=== PATIENT | female | born 1980 | race Caucasian/White ===

== ENCOUNTER 2018-12-13 23:18 | Emergency (ER) | payer OTHER ==
[2018-12-13 23:43] VITALS: BP 112/84; PULSE 87; O2SAT 97
[2018-12-13] MEDS ORDERED: MOTRIN 600 MG PO ONE (23:56)
[2018-12-13] MEDS ORDERED: MOTRIN 600 MG ONE (23:58)
--- NOTE | 2018-12-14 00:02 | ERPHSYRPT ---
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 As she pulled it out, she felt pain shoot through her right hand and up into her elbow. Also states her hand started to swell immediately. Pt states the swelling has gone down significantly since arriving at the hospital. The director of safety and security wanted her to have it looked at. Triage Nursing Assessment: Pt ambulated back to the ER dept while holding a large bag of ice on her right hand. Respirations easy and unlabored. Right hand slightly swollen at this time. Right hand tender to the touch. No decrease in sensation. Able to make a fist with thumb and first 2 fingers, but unable to close ring finger and pinky finger Physician History: 38-year-old white female arrives with complaint of pain in her right hand since 40 minutes. According to patient she was at her work in a coal mine she was pulling a plastic bag out of the trash container when she felt a sudden pain in her right hand which shot up into her right elbow she states she initially had swelling in her right hand located over the right fifth metacarpal on the volar surface. She states she cannot make a tight fist at this time. She is able however to wiggle her fingers and she is able to fully flex her fingers and extend her fingers. She denies any sensory loss. Past medical history includes asthma, myocardial infarction, ulcers,, anxiety, depression, gastroschesis. Past surgical history includes hernia repair, tonsillectomy and adenoidectomy, hysterectomy, , myringotomy tubes, complications from which required surgery. Social history positive tobacco use denies alcohol or illicit drug use. Occurred: just prior to arrival (40 minutes prior to arrival) Method of Injury: other (pulling plastic bag out of a trash can) Quality: constant, aching, sharpness Severity of Pain-Max: moderate Severity of Pain-Current: mild Extremities Pain Location: hand: left Modifying Factors: Improves With: movement Associated Symptoms: none Allergies/Adverse Reactions: No Known Drug Allergies Allergy (Unverified 12/13/18 23:43) Home Medications: Aspirin EC 81 mg [Ecotrin 81 mg] 1 tab PO DAILY 12/13/18 [History] Escitalopram Oxalate 10 mg [Lexapro 10 MG] 20 mg PO DAILY 12/13/18 [History] Furosemide 40 mg [Lasix 40 MG] 20 mg PO DAILY 12/13/18 [History] Potassium Chloride 10 meq PO DAILY 12/13/18 [History] Simvastatin 20 mg PO DAILY 12/13/18 [History] Hx Tetanus, Diphtheria Vaccination/Date Given: (unknown) - Review of Systems Constitutional: No Fever, No Chills Eyes: No Symptoms Ears, Nose, & Throat: No Symptoms Respiratory: No Cough, No Dyspnea Cardiac: No Chest Pain, No Edema, No Syncope Abdominal/Gastrointestinal: No Abdominal Pain, No Nausea, No Vomiting, No Diarrhea Genitourinary Symptoms: No Dysuria Musculoskeletal: Other (right hand pain) Skin: No Rash Neurological: No Dizziness, No Focal Weakness, No Sensory Changes Psychological: No Symptoms Endocrine: No Symptoms All Other Systems: Reviewed and Negative - Past Medical History Pertinent Past Medical History: Yes Neurological History: No Pertinent History ENT History: Other Cardiac History: Myocardial Infarction ([place]) Respiratory History: Asthma Endocrine Medical History: No Pertinent History Musculoskeletal History: No Pertinent History GI Medical History: Ulcer, Other History: No Pertinent History Psycho-Social History: Anxiety, Depression Female Reproductive Disorders: Other Other Medical History: gastroschesis, hernia repair, torn uterus, uterine cancer cells - Past Surgical History Past Surgical History: Yes Neuro Surgical History: No Pertinent History Cardiac: No Pertinent History, Vascular Surgery Respiratory: No Pertinent History Gastrointestinal: Hernia Repair Genitourinary: No Pertinent History Musculoskeletal: No Pertinent History Female Surgical History: Hysterectomy, Section Other Surgical History: tubes in ears, complications from and hysterectomy that had to be surgically repaired, vein stripping - Social History Smoking Status: Current every day smoker Exposure to second hand smoke: Yes Drug Use: none Patient Lives Alone: No - Female History Hx Now: No - Nursing Vital Signs Nursing Vital Signs: Initial Vital Signs Temperature 98.8 F 12/13/18 23:25 Pulse Rate 87 12/13/18 23:25 Respiratory Rate 18 12/13/18 23:25 Blood Pressure 112/84 12/13/18 23:25 O2 Sat by Pulse Oximetry 97 12/13/18 23:25 Pain Scale Pain Intensity 4 - Physical Exam General Appearance: mild distress, alert Eyes, Ears, Nose, Throat Exam: moist mucous membranes Neck Exam: non-tender, supple Cardiovascular/Respiratory Exam: chest non-tender, normal breath sounds, regular rate/rhythm, no respiratory distress Abdominal Exam: non-tender, No guarding Back Exam: normal inspection, No vertebral tenderness Shoulder Exam: normal inspection, non-tender, no evidence of injury, normal ROM Elbow/Forearm Exam: normal inspection, non-tender, no evidence of injury, normal ROM Wrist Exam: normal inspection, non-tender, no evidence of injury, normal ROM Hand Exam: No normal inspection (Right hand tender with palpation and movement overlying right fifth metacarpal volar surface full range of motion right fingers states she cannot make a tight fist with the right hand right radial and Ulnar pulses intact two over four good capillary refill all fingers sensation intact to all fingers.) DTR - Upper Extremity Exam: tricep (R): 2+, tricep (L): 2+ Neuro/Tendon Exam: normal sensation, normal motor functions Mental Status Exam: alert, oriented x 3, cooperative Skin Exam: normal color, warm, dry SpO2 Interpretation: normal (97%) SpO2: 97 - Course Nursing assessment & vital signs reviewed: Yes - Radiology Exams Right Hand X-ray Interpretation: Interpreted by me (x-ray right hand: Impression: No fractures no subluxation) Ordered Tests: Active Orders 24 hr Category Date Time Status Joao Bandage Application [facility] STAT Care 12/14/18 00:20 Active HAND (MINIMUM 3 VIEWS) Stat Exams 12/14/18 00:01 Taken Medication Summary Discontinued Medications Generic Name Dose Route Start Last Admin Trade Name Nate PRN Reason Stop Dose Admin Ibuprofen 600 mg 12/13/18 23:56 12/14/18 00:00 Motrin 600 Mg PO 12/13/18 23:57 600 mg STAT ONE Administration Ibuprofen Confirm 12/13/18 23:58 Motrin 600 Mg Administered 12/13/18 23:59 Dose 600 mg .ROUTE .STK-MED ONE - Progress Progress: improved Progress Note: 12/14/18 00:25 This is a 38-year-old white female who arrives with complaint of pain in her right hand after pulling a plastic bag out of the trash can at work. She states she had pain in her right hand located over the right fifth metacarpal which showed a shot pain up to right elbow. On arrival patient is able to fully flex and extend all of her right finger sensation is intact to all right fingers there is good capillary refill to all right fingers. She is tender with palpation overlying the right fifth metacarpal volar surface. Right radial and Ulnar pulses are intact two over four there is full range of motion to the right wrist elbow and shoulder. X-ray of the right hand (my read) no fractures no subluxation. Will go ahead and have nurse apply Joao wrap to the right hand patient was given Advil for pain. She is recommended to take Tylenol every 4 hours or Advil every 6 hours as needed for pain cold packs to the right hand 24-48 hours. She is to have limited use of the right hand 48-72 hours. She is to followup with her company physician if symptoms are worse, no better in 24-48 hours, or persist longer than one week. She is return for acute distress or for severe symptoms. - Departure Departure Disposition: Home Clinical Impression: Right hand pain Sprain of right hand Qualifiers: Encounter type: initial encounter Qualified Code(s): S63.91XA - Sprain of unspecified part of right wrist and hand, initial encounter Condition: Fair Critical Care Time: No Referrals: DANELLE WARNER [Primary Care Provider] - Additional Instructions: Return to work. Limited use of right hand 48-72 hours. Tylenol every 4 hours or Motrin every 6 hours as needed for pain. Cold packs right hand 24-48 hours. Followup with your company physician if symptoms are worse, no better in 48 hours, or persist longer than one week. Return for acute distress or for severe symptoms. Your x-rays have been preliminarily read they will be reread tomorrow you'll be contacted if any discrepancies are noted.
--- NOTE | 2018-12-14 08:42 | XRAY ---
Indication: Pain following injury. Comparison: None 3 views of the right hand demonstrates tiny bone islands of the distal radius and head of the 4th proximal phalanx. Also mild lunate triquetrum degenerative changes. No other bony, articular, or soft tissue abnormalities.
== END 2018-12-14 00:44 | disposition home or self-care (01) ==
LOC: ED 23:18
DX: M79.641 Pain in right hand (principal); S63.91XA Sprain of unspecified part of right wrist and hand, initial encounter; X50.0XXA Overexertion from strenuous movement or load, initial encounter; X50.9XXA Other and unspecified overexertion or strenuous movements or postures, initial encounter; Y93.89 Activity, other specified; Y92.64 Mine or pit as the place of occurrence of the external cause; Y99.0 Civilian activity done for income or pay
CPT/HCPCS: 73130; 99283; A9270-GY

== ENCOUNTER 2023-10-20 21:37 | Observation (INO) | payer MEDICARE ==
[2023-10-20] MEDS ORDERED: DUONEB 0.5-3 MG/3 ml Neb IH ONE ×2 (21:44→22:18)
[2023-10-20] MEDS: DUONEB 0.5-3 MG/3 ml Neb IH ONE ×2 (21:48→22:46)
[2023-10-20] MEDS ORDERED: solu-MEDROL ONE (22:13)
[2023-10-20] MEDS ORDERED: Sterile H2O 10 ml IJ ONE (22:13)
[2023-10-20] MEDS: solu-MEDROL 125 MG, Sterile H2O 10 ml 2 ML IV ONE (22:15)
[2023-10-20 22:27] LABS: Absolute Neutrophil Ct (ANC) 5.24 x10^3/uL (1.4-6.9); Basophil (Absolute #) 0.09 x10^3/uL (0-0.4); Eosinophil % 2.5 % (0.00-5.0); Eosinophil (Absolute #) 0.24 x10^3/uL (0-0.5); Hematocrit 42.5 % (35-47); Hemoglobin 14.2 g/dL (12.0-16.0); IMMATURE GRAN # 0.02 x10^3u/L (0.00-0.03); IMMATURE GRAN % 0.2 % (0.00-0.4); Lymphocyte (Absolute #) 3.32 x10^3/uL (1.0-4.6); Lymphocytes % 35.2 % (24.0-44.0); Mean Corpuscular Hemoglobin 28.7 pg (26-32); Mean Corpuscular Hgb Concent. 33.4 g/dL (32-36); Monocyte (Absolute #) 0.52 x10^3/uL (0.0-1.3); Monocytes % 5.5 % (0.0-12.0); Neutrophil % 55.6 % (36.0-66.0); Platelet Count 232 x10^3/uL (150-450); Red Blood Count 4.94 x10^6/uL (4.1-5.4); Red Cell Distribution Width 12.8 % (11.5-14.0); White Blood Count 9.4 x10^3/uL (4.0-10.5)
[2023-10-20 22:41] LABS: ALBUMIN 4.1 g/dL (3.5-5.0); ANION GAP 10.6 MEQ/L (5-15); BILIRUBIN,TOTAL 0.2 mg/dL (0.2-1.3); Creatinine 1 0.68 mg/dL (0.52-1.04); EST GLOMERULAR FILTRATION RATE 109.4 ML/MIN; Potassium 3.8 mmol/L (3.5-5.1); Total Protein 6.9 g/dL (6.3-8.2)
[2023-10-21] MEDS ORDERED: Zithromax 500 MG/ 250 ML NaCl Premix 500 MG/250 ML IVPB IV ONE (00:16)
[2023-10-21] MEDS ORDERED: ROCEPHIN 2 GM/100 ML NACL 2 GM/100 ML IVPB IV ONE (00:17)
[2023-10-21] MEDS: Zithromax 500 MG/ 250 ML NaCl Premix 500 MG/250 ML IVPB IV STA (00:27)
--- NOTE | 2023-10-21 00:29 | ERPHSYRPT ---
- History of Present Illness Time Seen by Provider: 10/20/23 21:41 Source: patient, family Exam Limitations: no limitations Patient Subjective Stated Complaint: pt states that at approx 1930 she had just picked child up she started feeling "weird" and described it as being shortness of breath and feeling like she is being "sqeezed" around her upper chest and back circumferentially. states it isn't pain but a sqeezing/ pressure rated 8/10 and has been constant since 193. Triage Nursing Assessment: pt ambulated into room 6 independently with slow steady gait after standing on scale for weight acquisition. pt is alert and oriented times three, able to move all extremities, speaking in 2-3 word phrases, and with labored breathing using accessory muscles- with an increased work of breathing. bilat anterior lung sounds with inspiratory/ expiratory wheezes throughout. pt denies h/o of copd, cpap usage, or home oxygen use. heart sounds present and regular upon auscultation. no JVD noted. moderate nonpitting edema noted to bilat ankles and feet which pt states is her baseline. bilat radial and pedal pulses palpable. pt denies n/v, diarrhea, lightheadedness, dizziness, change in appetite, difficulty with urinary/ bowel elimination, fever , cough, chills, contact with sick persons or other complaints than feeling "weird" and described it as being shortness of breath and feeling like she is being "sqeezed" around her upper chest and back circumferentially. states it isn't pain but a sqeezing/ pressure rated 8/10 and has been constant Physician History: 43-year-old female with history of tobacco abuse presented in the ER with sudden onset shortness of breath with chest tightness pressure with some radiation to the back around 7:30 PM. Patient reports feels weird and short of breath even resting and gets worse with minimal activity. Denies any fever or chills. Has minimal nonproductive cough. Denies any known sick contact. Patient has no history of coronary artery disease. Patient is tachypneic on presentation with bilateral diffuse wheezing. Allergies/Adverse Reactions: No Known Drug Allergies Allergy (Verified 10/20/23 21:41) Home Medications: Aspirin EC 81 mg [Ecotrin 81 mg] 1 tab PO DAILY 12/13/18 [History] Escitalopram Oxalate [Lexapro] 20 mg PO HS 12/13/18 [History] Furosemide 40 mg [Lasix 40 MG] 20 mg PO DAILY 12/13/18 [History] Potassium Chloride 10 meq PO DAILY 12/13/18 [History] Albuterol 2.5 mg/3 ml Neb [Proventil 2.5 mg/3 ml Neb] 2.5 mg IH UD PRN 10/20/23 [History] Albuterol Sulfate [Proair Respiclick] 2 puffs IH Q4-6HPRN PRN 10/20/23 [History] Atorvastatin Calcium [Lipitor 20MG Tablet] 20 mg PO HS 10/20/23 [History] Fluticasone/Umeclidin/Vilanter [Trelegy Ellipta 100-62.5-25] 1 each IH UD 10/20/23 [History] Omeprazole 20 mg PO HS 10/20/23 [History] Rivaroxaban 10 mg Tablet [Xarelto 10 mg Tablet] 10 mg PO HS 10/20/23 [History] Hx Tetanus, Diphtheria Vaccination/Date Given: Yes Hx Influenza Vaccination/Date Given: No Hx Pneumococcal Vaccination/Date Given: No Immunizations Up to Date: Yes Travel Risk - International Travel Have you traveled outside of the country in past 3 weeks: No - Emerging Infectious Disease Are you exhibiting symptoms associated with any current EIDs: No - Review of Systems Constitutional: No Symptoms Eyes: No Symptoms Ears, Nose, & Throat: No Symptoms Respiratory: Cough, Dyspnea, Dyspnea on Exertion (GUZMAN), Wheezing Cardiac: Chest Pain Abdominal/Gastrointestinal: No Symptoms Genitourinary Symptoms: No Symptoms Musculoskeletal: No Symptoms Skin: No Symptoms Neurological: No Symptoms Psychological: No Symptoms Endocrine: No Symptoms Hematologic/Lymphatic: No Symptoms Immunological/Allergic: No Symptoms - Past Medical History Pertinent Past Medical History: Yes Neurological History: No Pertinent History ENT History: No Pertinent History Cardiac History: Coronary Artery Disease, High Cholesterol, Hypertension, Myocardial Infarction ([place]) Respiratory History: Asthma Endocrine Medical History: No Pertinent History Musculoskeletal History: No Pertinent History GI Medical History: Ulcer, Other History: No Pertinent History Psycho-Social History: Anxiety, Depression Female Reproductive Disorders: Other Other Medical History: gastroschesis, hernia repair, torn uterus, uterine cancer cells - Past Surgical History Past Surgical History: Yes Neuro Surgical History: No Pertinent History Cardiac: No Pertinent History, Vascular Surgery Respiratory: No Pertinent History Gastrointestinal: Hernia Repair Genitourinary: No Pertinent History Musculoskeletal: No Pertinent History Female Surgical History: Hysterectomy, Section Other Surgical History: tubes in ears, complications from and hysterectomy that had to be surgically repaired, vein stripping bilat legs with thrombectomy - Female History Hx Last Menstrual Period: hysterectomy Hx Now: No - Social History Smoking Status: Current every day smoker How long have you smoked: 2000 Exposure to second hand smoke: Yes Drug Use: none Patient Lives Alone: No - Nursing Vital Signs Nursing Vital Signs: Initial Vital Signs Pulse Rate 71 10/20/23 21:40 Respiratory Rate 24 10/20/23 21:40 Blood Pressure 126/89 10/20/23 21:40 O2 Sat by Pulse Oximetry 97 10/20/23 21:40 Pain Scale Pain Intensity 8 - Physical Exam General Appearance: mild distress, alert Eye Exam: PERRL/EOMI Ears, Nose, Throat Exam: hearing grossly normal, normal ENT inspection, normal pharynx Neck Exam: normal inspection, non-tender, supple, full range of motion Respiratory Exam: respiratory distress, diminished breath sounds, accessory muscle use, rhonchi, wheezing Cardiovascular/Chest Exam: normal heart sounds, regular rate/rhythm Abdominal/Gastrointestinal Exam: soft, normal bowel sounds, No tenderness Extremity Exam: non-tender, normal range of motion Neurologic Exam: alert, oriented x 3, cooperative Skin Exam: normal color SpO2 Interpretation: normal SpO2: 94 O2 Delivery: Room Air - Course EKG Interpreted by Me: RATE (75), Sinus Rhythm, NORMAL AXIS, NORMAL INTERVALS, Other (Nonspecific T wave changes) Ordered Tests: Active Orders 24 hr Category Date Time Status Bedrest ROUTINE Activity 10/21/23 00:23 Active Up With Assistance ROUTINE Activity 10/21/23 00:23 Active Call Admit Doctor for Orders ON ADMISSION Care 10/21/23 00:23 Active Code Status Order ROUTINE Care 10/21/23 00:23 Active EKG-ER Only STAT Care 10/20/23 22:11 Completed Fall Protocol ROUTINE Care 10/21/23 00:23 Active IV Insertion STAT Care 10/20/23 22:[address] in Observation ROUTINE Care 10/21/23 00:23 Active Telemetry q6h Care 10/21/23 00:23 Active Heart-Healthy Diet Diet 10/21/23 Breakfast Active CHEST 1 VIEW (PORTABLE) Stat Exams 10/20/23 22:11 Taken BLOOD CULTURE Stat Lab 10/20/23 22:22 Received CBC W DIFF Stat Lab 10/20/23 21:45 Completed CMP Stat Lab 10/20/23 21:45 Completed D-DIMER QUANTITATIVE Stat Lab 10/20/23 21:45 Completed Lactic Acid Stat Lab 10/20/23 22:11 Completed MAGNESIUM Stat Lab 10/20/23 21:45 Completed NT PRO BNPII Stat Lab 10/20/23 21:45 Completed TROPONIN Q4H Lab 10/20/23 21:45 Completed TROPONIN Q4H Lab 10/21/23 02:15 Ordered TROPONIN Q4H Lab 10/21/23 06:15 Ordered Oxygen Nasal Cannula 2 lpm RT 10/21/23 00:23 Active Pulse Oximetry CONTINUOUS RT 10/21/23 00:23 Active Respiratory Therapy Consult ONCE RT 10/21/23 00:23 Active Transfer Order Routine Transfer 10/21/23 Completed Medication Summary Generic Name Dose Route Start Last Admin Trade Name Freq PRN Reason Stop Dose Admin Azithromycin 500 mg in 250 mls @ 250 mls/hr 10/21/23 00:07 10/21/23 00:27 Zithromax 500 Mg/ 250 Ml Nacl Premix IV 10/21/23 01:06 250 ml/hr STAT STA 250 mls/hr Administration Ceftriaxone Sodium 2 gm in 100 mls @ 200 mls/hr 10/21/23 00:07 Rocephin 2 Gm/100 Ml Nacl IV 10/21/23 00:36 STAT ONE Discontinued Medications Generic Name Dose Route Start Last Admin Trade Name Freq PRN Reason Stop Dose Admin Albuterol/Ipratropium 3 ml 10/20/23 21:46 10/20/23 21:48 Ipratropium/Albuterol Sulfate 3 Ml Ampul.Neb IH 10/20/23 21:47 3 ml STAT ONE Administration Albuterol/Ipratropium Confirm 10/20/23 21:44 Ipratropium/Albuterol Sulfate 3 Ml Ampul.Neb Administered 10/20/23 21:45 Dose 3 ml IH .STK-MED ONE Albuterol/Ipratropium 3 ml 10/20/23 22:11 10/20/23 22:46 Ipratropium/Albuterol Sulfate 3 Ml Ampul.Neb IH 10/20/23 22:12 3 ml STAT ONE Administration Albuterol/Ipratropium Confirm 10/20/23 22:18 Ipratropium/Albuterol Sulfate 3 Ml Ampul.Neb Administered 10/20/23 22:19 Dose 3 ml IH .STK-MED ONE Methylprednisolone Sodium 0 mg 10/20/23 22:11 10/20/23 22:15 Succinate 125 mg/ Sterile IV 10/20/23 22:12 125 mg Water 2 ml STAT ONE Administration Azithromycin Confirm 10/21/23 00:16 Zithromax 500 Mg/ 250 Ml Nacl Premix Administered 10/21/23 00:17 Dose 500 mg in 250 mls @ ud IV .STK-MED ONE Ceftriaxone Sodium Confirm 10/21/23 00:17 Rocephin 2 Gm/100 Ml Nacl Administered 10/21/23 00:18 Dose 2 gm in 100 mls @ ud IV .STK-MED ONE Methylprednisolone Sodium Succinate Confirm 10/20/23 22:13 Methylprednis Sod Succ 125 Mg/2 Ml Vial Administered 10/20/23 22:14 Dose 125 mg .ROUTE .STK-MED ONE Sterile Water Confirm 10/20/23 22:13 Water For Injection,Sterile 10 Ml Vial Administered 10/20/23 22:14 Dose 10 ml IJ .STK-MED ONE Lab/Rad Data: Laboratory Result Diagrams 10/20/23 21:45 10/20/23 21:45 Laboratory Results 10/20/23 10/20/23 10/20/23 Range/Units 22:11 21:45 21:45 WBC (4.0-10.5) x10^3/uL RBC (4.1-5.4) x10^6/uL Hgb (12.0-16.0) g/dL Hct (35-47) % MCV (78-100) fL MCH (26-32) pg MCHC (32-36) g/dL RDW (11.5-14.0) % Plt Count (150-450) x10^3/uL MPV (7.5-11.0) fL Gran % (36.0-66.0) % Immature Gran % (Auto) (0.00-0.4) % Nucleat RBC Rel Count (0.00-0.1) % Eos # (Auto) (0-0.5) x10^3/uL Immature Gran # (Auto) (0.00-0.03) x10^3u/L Absolute Lymphs (auto) (1.0-4.6) x10^3/uL Absolute Monos (auto) (0.0-1.3) x10^3/uL Absolute Nucleated RBC (0.00-0.01) x10^3u/L Lymphocytes % (24.0-44.0) % Monocytes % (0.0-12.0) % Eosinophils % (0.00-5.0) % Basophils % (0.0-0.4) % Absolute Granulocytes (1.4-6.9) x10^3/uL Basophils # (0-0.4) x10^3/uL D-Dimer (0.0-0.50) mg/L Sodium (135-145) mmol/L Potassium (3.5-5.1) mmol/L Chloride (98-107) mmol/L Carbon Dioxide (22-30) mmol/L Anion Gap (5-15) MEQ/L BUN (7-17) mg/dL Creatinine (0.52-1.04) mg/dL Estimated GFR ML/MIN Glucose (74-106) mg/dL Lactic Acid 1.3 (0.4-2.0) Calcium (8.4-10.2) mg/dL Magnesium (1.6-2.3) mg/dL Total Bilirubin (0.2-1.3) mg/dL AST (14-36) U/L ALT (0-35) U/L Alkaline Phosphatase (38-126) U/L Troponin I < 0.012 (0.000-0.033) ng/mL NT-Pro-B Natriuret Pep 118 (<300) pg/mL Serum Total Protein (6.3-8.2) g/dL Albumin (3.5-5.0) g/dL 10/20/23 10/20/23 10/20/23 Range/Units 21:45 21:45 21:45 WBC 9.4 (4.0-10.5) x10^3/uL RBC 4.94 (4.1-5.4) x10^6/uL Hgb 14.2 (12.0-16.0) g/dL Hct 42.5 (35-47) % MCV 86.0 (78-100) fL MCH 28.7 (26-32) pg MCHC 33.4 (32-36) g/dL RDW 12.8 (11.5-14.0) % Plt Count 232 (150-450) x10^3/uL MPV 11.0 (7.5-11.0) fL Gran % 55.6 (36.0-66.0) % Immature Gran % (Auto) 0.2 (0.00-0.4) % Nucleat RBC Rel Count 0.0 (0.00-0.1) % Eos # (Auto) 0.24 (0-0.5) x10^3/uL Immature Gran # (Auto) 0.02 (0.00-0.03) x10^3u/L Absolute Lymphs (auto) 3.32 (1.0-4.6) x10^3/uL Absolute Monos (auto) 0.52 (0.0-1.3) x10^3/uL Absolute Nucleated RBC 0.00 (0.00-0.01) x10^3u/L Lymphocytes % 35.2 (24.0-44.0) % Monocytes % 5.5 (0.0-12.0) % Eosinophils % 2.5 (0.00-5.0) % Basophils % 1.0 (0.0-0.4) % Absolute Granulocytes 5.24 (1.4-6.9) x10^3/uL Basophils # 0.09 (0-0.4) x10^3/uL D-Dimer 0.34 (0.0-0.50) mg/L Sodium 139 (135-145) mmol/L Potassium 3.8 (3.5-5.1) mmol/L Chloride 107 (98-107) mmol/L Carbon Dioxide 25 (22-30) mmol/L Anion Gap 10.6 (5-15) MEQ/L BUN 9 (7-17) mg/dL Creatinine 0.68 (0.52-1.04) mg/dL Estimated GFR 109.4 ML/MIN Glucose 95 (74-106) mg/dL Lactic Acid (0.4-2.0) Calcium 9.0 (8.4-10.2) mg/dL Magnesium 2.0 (1.6-2.3) mg/dL Total Bilirubin 0.20 (0.2-1.3) mg/dL AST 22 (14-36) U/L ALT 25 (0-35) U/L Alkaline Phosphatase 92 (38-126) U/L Troponin I (0.000-0.033) ng/mL NT-Pro-B Natriuret Pep (<300) pg/mL Serum Total Protein 6.9 (6.3-8.2) g/dL Albumin 4.1 (3.5-5.0) g/dL - Progress Progress: improved, re-examined Air Movement: fair Progress Note: 10/21/23 00:27 43-year-old is evaluated in the ER for sudden onset chest tightness pressure/pain with shortness of breath. Patient has diffuse wheezing all over. Patient is tachypneic. Given multiple DuoNebs, Solu-Medrol, on reevaluation she is feeling better but still short of breath and started to desat to 88%. She is placed on 2 L oxygen. Patient ambulated in the ER with moderate shortness of breath after few steps. Chest x-ray negative for any acute cardiopulmonary findings reviewed by me, official report is pending. Normal white count, unremarkable chemistries. Negative troponin. EKG is sinus rhythm with no ST elevation. Has negative D-dimers. I believe patient has COPD exacerbation and given a dose of antibiotic. Since patient is on 2 L oxygen although she is feeling better but cannot go home, discussed the results of workup and recommended observation admission with patient understand and agree. I have discussed with Dr. Murray hospitalist on-call and patient is being admitted. Blood Culture(s) Obtained: Yes Antibiotics given: Yes Discussed with : Fredy Will see patient in: hospital (observation) Counseled pt/family regarding: lab results, diagnosis, rad results, smoking cessation Medical Desision Making - Discussion of managment Care discussed with:: hospitalist Reviewed:: Test results Agreed on:: Treatment plan, place in obs Will see patient: in hospital - Diagnostic Testing Diagnostic test were ordered, analyzed, and reviewed by me: Yes Radiological Interpretation: Interpreted by me, Reviewed by me - Risk of complications The pt has a high risk of morbidity or mortality based on: Decision regarding hospitilization or escalation of hosp level of care - Departure Departure Disposition: Observation Clinical Impression: COPD with exacerbation Condition: Stable Critical Care Time: No
[2023-10-21] MEDS: ROCEPHIN 2 GM/100 ML NACL 2 GM/100 ML IVPB IV ONE (01:55)
[2023-10-21] MEDS ORDERED: PROVENTIL 2.5 MG/3 ML NEB IH PRN (02:37)
[2023-10-21] MEDS ORDERED: TYLENOL 325 MG PO PRN (02:43)
[2023-10-21] MEDS: XARELTO 10 MG TABLET PO SCH (02:48)
--- NOTE | 2023-10-21 02:51 | PCM.HP ---
History of Present Illness - Chief Complaint Chief Complaint: "My chest was tight" Date: 10/21/23 History of Present Illness: 43-year-old woman with a history of CAD with DC 34 years of age, COPD/asthma with monthly inhaler use but no admissions for respiratory failure, peripheral arterial disease with recurrent leg arterial thrombi on chronic Xarelto, who presents with chest tightness and dyspnea. Patient was in her usual state of health until this afternoon when she suddenly began to feel tightness over her chest and back, associated with severe dyspnea and left shoulder blade pain, dizziness and lightheadedness. He denied any nausea, cough, fevers, chills, or sore throat. This was not similar to how she felt with her prior DC 9 years ago. No sick contacts, although she has been having more allergic rhinitis symptoms. She last had a "asthma attack" 2 weeks ago for which she used her inhaler. This time, she had no relief by inhaler. No exacerbating or alleviating factors. However, after coming to the ER and getting steroids and nebs, she is feeling her breathing is much better. However, when they tried to ambulate her on room air, her SpO2 dropped to 88%. She is currently on 2 L oxygen by nasal cannula. She has a [id number] smoking history. - Review of Systems Constitutional: No Fever, No Chills, No Fatigue, No Weakness, No Weight Loss Eyes: No Eye Pain, No Eye Redness, No Vision Changes Ears, Nose, & Throat: No Nose Congestion, No Sinus Drainage, No Throat Pain Respiratory: Short Of Breath, No Cough, No Stridor, No Wheezing Cardiac: Chest Pain (Tightness), No Edema, No Orthopnea Abdominal/Gastrointestinal: No Abdominal Pain, No Nausea, No Vomiting Genitourinary Symptoms: No Symptoms Musculoskeletal: No Symptoms Neurological: Dizziness, No Focal Weakness, No Gait Changes, No Headache Psychological: No Symptoms Endocrine: No Symptoms Hematologic/Lymphatic: No Symptoms Immunological/Allergic: Pollen Allergy Medications & Allergies Home Medications: Home Medication List Potassium Chloride 10 meq PO DAILY 12/13/18 [History Confirmed 10/20/23] RX: Aspirin EC 81 mg [Ecotrin 81 mg] 1 tab PO DAILY 12/13/18 [History Confirmed 10/20/23] RX: Escitalopram Oxalate [Lexapro] 20 mg PO HS 12/13/18 [History Confirmed 10/20/23] RX: Furosemide 40 mg [Lasix 40 MG] 20 mg PO DAILY 12/13/18 [History Confirmed 10/20/23] Albuterol Sulfate [Proair Respiclick] 2 puffs IH Q4-6HPRN PRN 10/20/23 [History Confirmed 10/20/23] Atorvastatin Calcium [Lipitor 20MG Tablet] 20 mg PO HS 10/20/23 [History Confirmed 10/20/23] Fluticasone/Umeclidin/Vilanter [Trelegy Ellipta 100-62.5-25] 1 each IH UD 10/20/23 [History Confirmed 10/20/23] RX: Albuterol 2.5 mg/3 ml Neb [Proventil 2.5 mg/3 ml Neb] 2.5 mg IH UD PRN 10/20/23 [History Confirmed 10/20/23] RX: Omeprazole 20 mg PO HS 10/20/23 [History Confirmed 10/20/23] Rivaroxaban 10 mg Tablet [Xarelto 10 mg Tablet] 10 mg PO HS 10/20/23 [History Confirmed 10/20/23] Allergies/Adverse Reactions: Allergies Allergy/AdvReac Type Severity Reaction Status Date / Time No Known Drug Allergies Allergy Verified 10/20/23 21:41 - Past Medical History Past Medical History: Yes Neurological History: No Pertinent History ENT History: No Pertinent History Cardiac History: Coronary Artery Disease, High Cholesterol, Hypertension, Myocardial Infarction (DC) (At age 27, did not require PCI) Respiratory History: Asthma (He is right-handed about once per month, has never been admitted for respiratory issues previously) Endocrine Medical History: No Pertinent History Musculoskelatal History: No Pertinent History GI Medical History: Ulcer, Other History: No Pertinent History Pyscho-Social History: Anxiety, Depression Reproductive Disorders: Other Comment: gastroschesis, hernia repair, torn uterus, uterine cancer cells - Female History Hx Last Menstrual Period: hysterectomy Are you now?: No - Past Surgical History Past Surgical History: Yes Neuro Surgical History: No Pertinent History Cardiac History: No Pertinent History, Vascular Surgery Respiratory Surgery: No Pertinent History GI Surgical History: Hernia Repair Genitourinary Surgical Hx: No Pertinent History Musculskeletal Surgical Hx: No Pertinent History Female Surgical History: Hysterectomy, Section Other Surgical History: tubes in ears, complications from and hysterectomy that had to be surgically repaired, vein stripping bilat legs with thrombectomy Significant Family History: no pertinent family hx - Social History Smoking Status: Current every day smoker (1 pack/day for 23 years) How long have you smoked: 2000 Exposure to second hand smoke: Yes Alcohol: None Drug Use: none - Social Determinants of Health Will the patient participate in the screening: Yes Do you worry about a steady place to live?: No Do you have any problems with any of the following?: No known problems In the past 12 months,have you had to go without utilities?: No Have you or anyone in your house had to go without enough: No Transportation Issues: No Has anyone in your support network made you feel unsafe?: No Does the patient want assistance with any of the above?: No - Physical Exam Vital Signs: Vital Signs - 24 hr Temp Pulse Resp BP BP Pulse Ox 10/21/23 02:33 75 16 93 L 10/21/23 00:35 94 L 10/21/23 00:20 97.3 F 68 19 120/67 95 10/21/23 00:01 70 22 125/78 95 10/20/23 23:30 77 22 123/101 94 L 10/20/23 23:00 74 18 133/89 97 10/20/23 22:48 93 L 10/20/23 22:32 73 16 119/82 94 L 10/20/23 22:00 77 23 131/79 91 L 10/20/23 21:50 71 22 96 10/20/23 21:43 97.7 F 75 22 126/89 95 10/20/23 21:40 71 24 126/89 97 GEN: Lying in bed in no acute distress NEURO: No focal deficits CV: Regular rate & rhythm, no murmurs, no edema PULM: Clear to auscultation bilaterally, no work of breathing, no prolonged expiration, on 2 L nasal cannula ABD: Soft, non-distended, normoactive bowel sounds PSYCH: Alert, oriented x3 Results - Labs Lab/Micro Results: Lab Results-Last 24 Hours 10/20/23 10/20/23 10/20/23 Range/Units 21:45 21:45 21:45 WBC 9.4 (4.0-10.5) x10^3/uL RBC 4.94 (4.1-5.4) x10^6/uL Hgb 14.2 (12.0-16.0) g/dL Hct 42.5 (35-47) % MCV 86.0 (78-100) fL MCH 28.7 (26-32) pg MCHC 33.4 (32-36) g/dL RDW 12.8 (11.5-14.0) % Plt Count 232 (150-450) x10^3/uL MPV 11.0 (7.5-11.0) fL Gran % 55.6 (36.0-66.0) % Immature Gran % (Auto) 0.2 (0.00-0.4) % Nucleat RBC Rel Count 0.0 (0.00-0.1) % Eos # (Auto) 0.24 (0-0.5) x10^3/uL Immature Gran # (Auto) 0.02 (0.00-0.03) x10^3u/L Absolute Lymphs (auto) 3.32 (1.0-4.6) x10^3/uL Absolute Monos (auto) 0.52 (0.0-1.3) x10^3/uL Absolute Nucleated RBC 0.00 (0.00-0.01) x10^3u/L Lymphocytes % 35.2 (24.0-44.0) % Monocytes % 5.5 (0.0-12.0) % Eosinophils % 2.5 (0.00-5.0) % Basophils % 1.0 (0.0-0.4) % Absolute Granulocytes 5.24 (1.4-6.9) x10^3/uL Basophils # 0.09 (0-0.4) x10^3/uL D-Dimer 0.34 (0.0-0.50) mg/L Sodium 139 (135-145) mmol/L Potassium 3.8 (3.5-5.1) mmol/L Chloride 107 (98-107) mmol/L Carbon Dioxide 25 (22-30) mmol/L Anion Gap 10.6 (5-15) MEQ/L BUN 9 (7-17) mg/dL Creatinine 0.68 (0.52-1.04) mg/dL Estimated GFR 109.4 ML/MIN Glucose 95 (74-106) mg/dL Lactic Acid (0.4-2.0) Calcium 9.0 (8.4-10.2) mg/dL Magnesium 2.0 (1.6-2.3) mg/dL Total Bilirubin 0.20 (0.2-1.3) mg/dL AST 22 (14-36) U/L ALT 25 (0-35) U/L Alkaline Phosphatase 92 (38-126) U/L Troponin I (0.000-0.033) ng/mL NT-Pro-B Natriuret Pep (<300) pg/mL Serum Total Protein 6.9 (6.3-8.2) g/dL Albumin 4.1 (3.5-5.0) g/dL 10/20/23 10/20/23 10/20/23 Range/Units 21:45 21:45 22:11 WBC (4.0-10.5) x10^3/uL RBC (4.1-5.4) x10^6/uL Hgb (12.0-16.0) g/dL Hct (35-47) % MCV (78-100) fL MCH (26-32) pg MCHC (32-36) g/dL RDW (11.5-14.0) % Plt Count (150-450) x10^3/uL MPV (7.5-11.0) fL Gran % (36.0-66.0) % Immature Gran % (Auto) (0.00-0.4) % Nucleat RBC Rel Count (0.00-0.1) % Eos # (Auto) (0-0.5) x10^3/uL Immature Gran # (Auto) (0.00-0.03) x10^3u/L Absolute Lymphs (auto) (1.0-4.6) x10^3/uL Absolute Monos (auto) (0.0-1.3) x10^3/uL Absolute Nucleated RBC (0.00-0.01) x10^3u/L Lymphocytes % (24.0-44.0) % Monocytes % (0.0-12.0) % Eosinophils % (0.00-5.0) % Basophils % (0.0-0.4) % Absolute Granulocytes (1.4-6.9) x10^3/uL Basophils # (0-0.4) x10^3/uL D-Dimer (0.0-0.50) mg/L Sodium (135-145) mmol/L Potassium (3.5-5.1) mmol/L Chloride (98-107) mmol/L Carbon Dioxide (22-30) mmol/L Anion Gap (5-15) MEQ/L BUN (7-17) mg/dL Creatinine (0.52-1.04) mg/dL Estimated GFR ML/MIN Glucose (74-106) mg/dL Lactic Acid 1.3 (0.4-2.0) Calcium (8.4-10.2) mg/dL Magnesium (1.6-2.3) mg/dL Total Bilirubin (0.2-1.3) mg/dL AST (14-36) U/L ALT (0-35) U/L Alkaline Phosphatase (38-126) U/L Troponin I < 0.012 (0.000-0.033) ng/mL NT-Pro-B Natriuret Pep 118 (<300) pg/mL Serum Total Protein (6.3-8.2) g/dL Albumin (3.5-5.0) g/dL 10/21/23 Range/Units 02:01 WBC (4.0-10.5) x10^3/uL RBC (4.1-5.4) x10^6/uL Hgb (12.0-16.0) g/dL Hct (35-47) % MCV (78-100) fL MCH (26-32) pg MCHC (32-36) g/dL RDW (11.5-14.0) % Plt Count (150-450) x10^3/uL MPV (7.5-11.0) fL Gran % (36.0-66.0) % Immature Gran % (Auto) (0.00-0.4) % Nucleat RBC Rel Count (0.00-0.1) % Eos # (Auto) (0-0.5) x10^3/uL Immature Gran # (Auto) (0.00-0.03) x10^3u/L Absolute Lymphs (auto) (1.0-4.6) x10^3/uL Absolute Monos (auto) (0.0-1.3) x10^3/uL Absolute Nucleated RBC (0.00-0.01) x10^3u/L Lymphocytes % (24.0-44.0) % Monocytes % (0.0-12.0) % Eosinophils % (0.00-5.0) % Basophils % (0.0-0.4) % Absolute Granulocytes (1.4-6.9) x10^3/uL Basophils # (0-0.4) x10^3/uL D-Dimer (0.0-0.50) mg/L Sodium (135-145) mmol/L Potassium (3.5-5.1) mmol/L Chloride (98-107) mmol/L Carbon Dioxide (22-30) mmol/L Anion Gap (5-15) MEQ/L BUN (7-17) mg/dL Creatinine (0.52-1.04) mg/dL Estimated GFR ML/MIN Glucose (74-106) mg/dL Lactic Acid (0.4-2.0) Calcium (8.4-10.2) mg/dL Magnesium (1.6-2.3) mg/dL Total Bilirubin (0.2-1.3) mg/dL AST (14-36) U/L ALT (0-35) U/L Alkaline Phosphatase (38-126) U/L Troponin I < 0.012 (0.000-0.033) ng/mL NT-Pro-B Natriuret Pep (<300) pg/mL Serum Total Protein (6.3-8.2) g/dL Albumin (3.5-5.0) g/dL - Radiology Impressions Radiology Exams & Impressions: Radiology Procedures Category Date Time Status CHEST 1 VIEW (PORTABLE) Stat Exams 10/20/23 22:11 Taken Chest x-ray no infiltrate, effusion, or edema. Normal lung volumes. (Images personally reviewed.) - Other Procedures and Tests Respiratory Therapy 10/20/23 21:47 Respiratory Therapy Assessment DAILY 10/21/23 00:23 Oxygen Nasal Cannula 2 lpm 10/21/23 02:36 Respiratory MDI BID 10/21/23 02:43 Respiratory Therapy Consult ONCE Assessment/Plan (1) COPD with exacerbation Current Visit: Yes Status: Acute Assessment & Plan: 43-year-old with a history of CAD, COPD versus asthma, hypertension, and PAD, who presents with shortness of breath and chest tightness. ## Asthma versus COPD with acute exacerbation no access to her pulmonary function testing, but given her strong smoking history, COPD is a family more likely than asthma. However, she has not had significant problems requiring hospitalization in the past for this. Acute trigger is most likely her recent allergic rhinitis symptoms. No evidence of pneumonia on chest x-ray. As well, she has no increase in sputum purulence or quantity to indicate need for antibiotics for COPD exacerbation. In the ED she was given Rocephin and azithromycin. Already on exam, she has no wheezing or prolonged expiration, no work of breathing. However, she was hypoxic on ambulation in the ED. Continue 2 L oxygen, and wean to maintain SpO2 between 91 to 95%. Continue Solu-Medrol, decrease to 40 mg IV BID Albuterol q.4 hours PRN Discontinue antibiotics After some more time for the steroids to take effect, we will repeat attempt to ambulate patient on room air to see if she would be able to go home ## CAD her presenting symptoms are concerning for ACS. However, serial troponins are negative and EKG has no changes. Her history of DC at a very early age is concerning, but her quick recovery with bronchodilators suggest more respiratory cause. Follow on telemetry Complete trending troponin Continue on aspirin, atorvastatin Will investigate why patient is not on beta-desean, although possibly because of her asthma/COPD ## Peripheral arterial disease per patient, has had recurrent leg thrombi and is on lifelong anticoagulation, her last surgery for this was a few years ago. Continue low-dose Xarelto 10 mg QHS ## Hypertension per history, but not currently on medications other than Lasix for her heart failure. Blood pressure currently controlled. Continue monitoring blood pressure ## Reported history of heart failure no history of echocardiograms, and patient is not on GDMT, suspecting diastolic heart failure or ischemia related to her prior DC. Patient is currently euvolemic, with low BNP. Continue home Lasix 20 mg, as well as potassium replacement CODE STATUS: Full code Prophylaxis: Xarelto Diet: Cardiac Code(s): J44.1 - CHRONIC OBSTRUCTIVE PULMONARY DISEASE W (ACUTE) EXACERBATION Telemedicine Encounter - Telemedicine Encounter Telemedicine Encounter: The entirety of this encounter was performed via Telemedicine"
[2023-10-21 04:57] LABS: Hematocrit 43.7 % (35-47); Hemoglobin 14.5 g/dL (12.0-16.0); Mean Cell Volume 86.2 fL (78-100); Mean Corpuscular Hemoglobin 28.6 pg (26-32); Mean Corpuscular Hgb Concent. 33.2 g/dL (32-36); Mean Platelet Volume 10.5 fL (7.5-11.0); Platelet Count 220 x10^3/uL (150-450); Red Blood Count 5.07 x10^6/uL (4.1-5.4); Red Cell Distribution Width 12.9 % (11.5-14.0); White Blood Count 9.4 x10^3/uL (4.0-10.5)
[2023-10-21 05:20] LABS: Calcium 8.9 mg/dL (8.4-10.2); Creatinine 1 0.69 mg/dL (0.52-1.04); Potassium 3.9 mmol/L (3.5-5.1)
[2023-10-21] MEDS ORDERED: Advair Hfa 115/21 Common canister IH SCH (07:00)
[2023-10-21] MEDS: Spiriva 18 Mcg/Cap Inhaler IH SCH (07:02)
[2023-10-21] MEDS: Advair Hfa 115/21 Common canister IH SCH (07:02)
--- NOTE | 2023-10-21 08:39 | XRAY ---
Indication: Short of breath. Comparison: None Portable chest demonstrates subtle right infrahilar hazy opacity with air bronchogram, possible pneumonic infiltrate. Remaining heart and lungs unremarkable. Bony thorax intact with minimal degenerative changes. Comment: Right lung finding not reported by interpreting ER clinician. Telephone report was given to Dr. Fofana at 0833 hours on October 21, 2023.
[2023-10-21] MEDS: ECOTRIN 81 MG PO SCH (09:06)
[2023-10-21] MEDS: solu-MEDROL 40 MG, Sterile H2O 10 ml 1 ML IV SCH (09:06)
[2023-10-21] MEDS: Klor Con PO SCH (09:06)
[2023-10-21] MEDS: LASIX 20 MG PO SCH (09:06)
[2023-10-21] MEDS ORDERED: NON-FORMULARY ITEM (Potassium Chloride [Potassium Chloride] 10 MEQ Tab.Er.Prt) PO SCH (10:00)
[2023-10-21] MEDS ORDERED: Lasix 40 MG PO SCH (10:00)
--- NOTE | 2023-10-21 11:21 | PCM.NOTE ---
Date and Time: 10/21/23 1114 Subjective Assessment: 43-year-old woman with a history of CAD with TX 34 years of age, COPD/asthma with monthly inhaler use but no admissions for respiratory failure, peripheral arterial disease with recurrent leg arterial thrombi on chronic Xarelto, who presents with chest tightness and dyspnea. Patient was in her usual state of health until this afternoon when she suddenly began to feel tightness over her chest and back, associated with severe dyspnea and left shoulder blade pain, dizziness and lightheadedness. He denied any nausea, cough, fevers, chills, or sore throat. This was not similar to how she felt with her prior TX 9 years ago. No sick contacts, although she has been having more allergic rhinitis symptoms. She last had a "asthma attack" 2 weeks ago for which she used her inhaler. This time, she had no relief by inhaler. No exacerbating or alleviating factors. However, after coming to the ER and getting steroids and nebs, she is feeling her breathing is much better. However, when they tried to ambulate her on room air, her SpO2 dropped to 88%. She is currently on 2 L oxygen by nasal cannula. She has a [id number] smoking history. Dyspnea and cough has improved. Radiologist called ED with noted infiltrate on cxr. Patient was started on ceftriaxone/azithromycin in ED. Patient however is requesting discharge today as she is feeling much better and has family at home she needs to care for. She qualifies for 2L continuous oxygen which we have set up for her. She has a nebulizer machine, duonebs, trelegy/albuterol inhalers which she will continue. She will discharge on cefpodoxime/azithromycin as well as a prednisone burst. Patient to follow up in one week with PCP for treatment response/repeat CXR. Patient agreeable to plan and stable for discharge. Discharge Note New Diagnosis: Pneumonia/copd exacerbation New Medications: cefodoxime/ prednisone Follow Up: pcp Latest Assessment & Plan (1) COPD with exacerbation Current Visit: Yes Status: Acute Assessment & Plan: 43-year-old with a history of CAD, COPD versus asthma, hypertension, and PAD, who presents with shortness of breath and chest tightness. ## Asthma versus COPD with acute exacerbation no access to her pulmonary function testing, but given her strong smoking history, COPD is a family more likely than asthma. However, she has not had significant problems requiring hospitalization in the past for this. Acute trigger is most likely her recent allergic rhinitis symptoms. No evidence of pneumonia on chest x-ray. As well, she has no increase in sputum purulence or quantity to indicate need for ant ibiotics for COPD exacerbation. In the ED she was given Rocephin and azithromycin. Already on exam, she has no wheezing or prolonged expiration, no work of breathing. However, she was hypoxic on ambulation in the ED. Continue 2 L oxygen, and wean to maintain SpO2 between 91 to 95%. Continue Solu-Medrol, decrease to 40 mg IV BID Albuterol q.4 hours PRN Discontinue antibiotics After some more time for the steroids to take effect, we will repeat attempt to ambulate patient on room air to see if she would be able to go home ## CAD her presenting symptoms are concerning for ACS. However, serial troponins are negative and EKG has no changes. Her history of TX at a very early age is concerning, but her quick recovery with bronchodilators suggest more respiratory cause. Follow on telemetry Complete trending troponin Continue on aspirin, atorvastatin Will investigate why patient is not on beta-desean, although possibly because of her asthma/COPD ## Peripheral arterial disease per patient, has had recurrent leg thrombi and is on lifelong anticoagulation, her last surgery for this was a few years ago. Continue low-dose Xarelto 10 mg QHS ## Hypertension per history, but not currently on medications other than Lasix for her heart failure. Blood pressure currently controlled. Continue monitoring blood pressure ## Reported history of heart failure no history of echocardiograms, and patient is not on GDMT, suspecting diastolic heart failure or ischemia related to her prior TX. Patient is currently euvolemic, with low BNP. Continue home Lasix 20 mg, as well as potassium replacement ### pneumonia - Per radiologist CXR with noted infiltrate, patient requesting discharge, dyspnea has improved, she does qualify for 2L of continuous oxygen. Will send on cefpodoxime, prednisone. She will continue her home meds of nebs/bronchodilators I spent 35 minutes [id number] with the patient on the day of discharge performing discharge exam, discussing hospital stay and discharge instructions with patient and caregivers, preparation of discharge records, prescriptions & referral forms and addressing any questions/concerns the patient had as documented above. - Review of Systems Constitutional: No Symptoms Eyes: No Symptoms Ears, Nose, & Throat: No Symptoms Respiratory: Cough, Short Of Breath Cardiac: No Symptoms Abdominal/Gastrointestinal: No Symptoms Genitourinary Symptoms: No Symptoms Musculoskeletal: No Symptoms Skin: No Symptoms Neurological: No Symptoms Psychological: No Symptoms Endocrine: No Symptoms Hematologic/Lymphatic: No Symptoms Immunological/Allergic: No Symptoms Objective Data Vital Signs: Vital Signs - 24 hr Temp Pulse Resp BP BP Pulse Ox 10/21/23 07:18 93 L 10/21/23 07:08 61 16 95 10/21/23 07:01 96.1 F 64 15 117/61 98 10/21/23 04:00 97.7 F 71 18 116/68 96 10/21/23 02:33 75 16 93 L 10/21/23 00:35 94 L 10/21/23 00:20 97.3 F 68 19 120/67 95 10/21/23 00:01 70 22 125/78 95 10/20/23 23:30 77 22 123/101 94 L 10/20/23 23:00 74 18 133/89 97 10/20/23 22:48 93 L 10/20/23 22:32 73 16 119/82 94 L 10/20/23 22:00 77 23 131/79 91 L 10/20/23 21:50 71 22 96 10/20/23 21:43 97.7 F 75 22 126/89 95 10/20/23 21:40 71 24 126/89 97 Pain Assessment - Last Documented Pain Intensity 0 Intake and Output: Intake & Output 10/18/23 10/19/23 10/20/23 10/21/23 11:59 11:59 11:59 11:59 Intake Total 1020 Balance 1020 Weight 153.9 kg Lab Results: Lab Results-Last 24 Hours 10/20/23 10/20/23 10/20/23 Range/Units 21:45 21:45 21:45 WBC 9.4 (4.0-10.5) x10^3/uL RBC 4.94 (4.1-5.4) x10^6/uL Hgb 14.2 (12.0-16.0) g/dL Hct 42.5 (35-47) % MCV 86.0 (78-100) fL MCH 28.7 (26-32) pg MCHC 33.4 (32-36) g/dL RDW 12.8 (11.5-14.0) % Plt Count 232 (150-450) x10^3/uL MPV 11.0 (7.5-11.0) fL Gran % 55.6 (36.0-66.0) % Immature Gran % (Auto) 0.2 (0.00-0.4) % Nucleat RBC Rel Count 0.0 (0.00-0.1) % Eos # (Auto) 0.24 (0-0.5) x10^3/uL Immature Gran # (Auto) 0.02 (0.00-0.03) x10^3u/L Absolute Lymphs (auto) 3.32 (1.0-4.6) x10^3/uL Absolute Monos (auto) 0.52 (0.0-1.3) x10^3/uL Absolute Nucleated RBC 0.00 (0.00-0.01) x10^3u/L Lymphocytes % 35.2 (24.0-44.0) % Monocytes % 5.5 (0.0-12.0) % Eosinophils % 2.5 (0.00-5.0) % Basophils % 1.0 (0.0-0.4) % Absolute Granulocytes 5.24 (1.4-6.9) x10^3/uL Basophils # 0.09 (0-0.4) x10^3/uL D-Dimer 0.34 (0.0-0.50) mg/L Sodium 139 (135-145) mmol/L Potassium 3.8 (3.5-5.1) mmol/L Chloride 107 (98-107) mmol/L Carbon Dioxide 25 (22-30) mmol/L Anion Gap 10.6 (5-15) MEQ/L BUN 9 (7-17) mg/dL Creatinine 0.68 (0.52-1.04) mg/dL Estimated GFR 109.4 ML/MIN Glucose 95 (74-106) mg/dL Lactic Acid (0.4-2.0) Calcium 9.0 (8.4-10.2) mg/dL Magnesium 2.0 (1.6-2.3) mg/dL Total Bilirubin 0.20 (0.2-1.3) mg/dL AST 22 (14-36) U/L ALT 25 (0-35) U/L Alkaline Phosphatase 92 (38-126) U/L Troponin I (0.000-0.033) ng/mL NT-Pro-B Natriuret Pep (<300) pg/mL Serum Total Protein 6.9 (6.3-8.2) g/dL Albumin 4.1 (3.5-5.0) g/dL 10/20/23 10/20/23 10/20/23 Range/Units 21:45 21:45 22:11 WBC (4.0-10.5) x10^3/uL RBC (4.1-5.4) x10^6/uL Hgb (12.0-16.0) g/dL Hct (35-47) % MCV (78-100) fL MCH (26-32) pg MCHC (32-36) g/dL RDW (11.5-14.0) % Plt Count (150-450) x10^3/uL MPV (7.5-11.0) fL Gran % (36.0-66.0) % Immature Gran % (Auto) (0.00-0.4) % Nucleat RBC Rel Count (0.00-0.1) % Eos # (Auto) (0-0.5) x10^3/uL Immature Gran # (Auto) (0.00-0.03) x10^3u/L Absolute Lymphs (auto) (1.0-4.6) x10^3/uL Absolute Monos (auto) (0.0-1.3) x10^3/uL Absolute Nucleated RBC (0.00-0.01) x10^3u/L Lymphocytes % (24.0-44.0) % Monocytes % (0.0-12.0) % Eosinophils % (0.00-5.0) % Basophils % (0.0-0.4) % Absolute Granulocytes (1.4-6.9) x10^3/uL Basophils # (0-0.4) x10^3/uL D-Dimer (0.0-0.50) mg/L Sodium (135-145) mmol/L Potassium (3.5-5.1) mmol/L Chloride (98-107) mmol/L Carbon Dioxide (22-30) mmol/L Anion Gap (5-15) MEQ/L BUN (7-17) mg/dL Creatinine (0.52-1.04) mg/dL Estimated GFR ML/MIN Glucose (74-106) mg/dL Lactic Acid 1.3 (0.4-2.0) Calcium (8.4-10.2) mg/dL Magnesium (1.6-2.3) mg/dL Total Bilirubin (0.2-1.3) mg/dL AST (14-36) U/L ALT (0-35) U/L Alkaline Phosphatase (38-126) U/L Troponin I < 0.012 (0.000-0.033) ng/mL NT-Pro-B Natriuret Pep 118 (<300) pg/mL Serum Total Protein (6.3-8.2) g/dL Albumin (3.5-5.0) g/dL 10/21/23 10/21/23 10/21/23 Range/Units 02:01 04:44 04:44 WBC 9.4 (4.0-10.5) x10^3/uL RBC 5.07 (4.1-5.4) x10^6/uL Hgb 14.5 (12.0-16.0) g/dL Hct 43.7 (35-47) % MCV 86.2 (78-100) fL MCH 28.6 (26-32) pg MCHC 33.2 (32-36) g/dL RDW 12.9 (11.5-14.0) % Plt Count 220 (150-450) x10^3/uL MPV 10.5 (7.5-11.0) fL Gran % (36.0-66.0) % Immature Gran % (Auto) (0.00-0.4) % Nucleat RBC Rel Count (0.00-0.1) % Eos # (Auto) (0-0.5) x10^3/uL Immature Gran # (Auto) (0.00-0.03) x10^3u/L Absolute Lymphs (auto) (1.0-4.6) x10^3/uL Absolute Monos (auto) (0.0-1.3) x10^3/uL Absolute Nucleated RBC (0.00-0.01) x10^3u/L Lymphocytes % (24.0-44.0) % Monocytes % (0.0-12.0) % Eosinophils % (0.00-5.0) % Basophils % (0.0-0.4) % Absolute Granulocytes (1.4-6.9) x10^3/uL Basophils # (0-0.4) x10^3/uL D-Dimer (0.0-0.50) mg/L Sodium 138 (135-145) mmol/L Potassium 3.9 (3.5-5.1) mmol/L Chloride 109 H (98-107) mmol/L Carbon Dioxide 20 L (22-30) mmol/L Anion Gap 13.0 (5-15) MEQ/L BUN 11 (7-17) mg/dL Creatinine 0.69 (0.52-1.04) mg/dL Estimated GFR 109.0 ML/MIN Glucose 223 H (74-106) mg/dL Lactic Acid (0.4-2.0) Calcium 8.9 (8.4-10.2) mg/dL Magnesium (1.6-2.3) mg/dL Total Bilirubin (0.2-1.3) mg/dL AST (14-36) U/L ALT (0-35) U/L Alkaline Phosphatase (38-126) U/L Troponin I < 0.012 (0.000-0.033) ng/mL NT-Pro-B Natriuret Pep (<300) pg/mL Serum Total Protein (6.3-8.2) g/dL Albumin (3.5-5.0) g/dL 10/21/23 Range/Units 06:48 WBC (4.0-10.5) x10^3/uL RBC (4.1-5.4) x10^6/uL Hgb (12.0-16.0) g/dL Hct (35-47) % MCV (78-100) fL MCH (26-32) pg MCHC (32-36) g/dL RDW (11.5-14.0) % Plt Count (150-450) x10^3/uL MPV (7.5-11.0) fL Gran % (36.0-66.0) % Immature Gran % (Auto) (0.00-0.4) % Nucleat RBC Rel Count (0.00-0.1) % Eos # (Auto) (0-0.5) x10^3/uL Immature Gran # (Auto) (0.00-0.03) x10^3u/L Absolute Lymphs (auto) (1.0-4.6) x10^3/uL Absolute Monos (auto) (0.0-1.3) x10^3/uL Absolute Nucleated RBC (0.00-0.01) x10^3u/L Lymphocytes % (24.0-44.0) % Monocytes % (0.0-12.0) % Eosinophils % (0.00-5.0) % Basophils % (0.0-0.4) % Absolute Granulocytes (1.4-6.9) x10^3/uL Basophils # (0-0.4) x10^3/uL D-Dimer (0.0-0.50) mg/L Sodium (135-145) mmol/L Potassium (3.5-5.1) mmol/L Chloride (98-107) mmol/L Carbon Dioxide (22-30) mmol/L Anion Gap (5-15) MEQ/L BUN (7-17) mg/dL Creatinine (0.52-1.04) mg/dL Estimated GFR ML/MIN Glucose (74-106) mg/dL Lactic Acid (0.4-2.0) Calcium (8.4-10.2) mg/dL Magnesium (1.6-2.3) mg/dL Total Bilirubin (0.2-1.3) mg/dL AST (14-36) U/L ALT (0-35) U/L Alkaline Phosphatase (38-126) U/L Troponin I < 0.012 (0.000-0.033) ng/mL NT-Pro-B Natriuret Pep (<300) pg/mL Serum Total Protein (6.3-8.2) g/dL Albumin (3.5-5.0) g/dL Radiology Exams: Radiology Procedures Category Date Time Status CHEST 1 VIEW (PORTABLE) Stat Exams 10/20/23 22:11 Completed Multi-Disciplinary Progress Notes: Multi-Disciplinary Progress Notes 10/21/23 11:13 Case Management Note by Xenia Connelly ORDER FOR OXYGEN SUBMITTED VIA [facility]. REQUIRES 2L PER NC 03/01. Initialized on 10/21/23 11:13 - END OF NOTE
--- NOTE | 2023-10-21 11:26 | PCM.DS ---
Discharge Summary Date of Admission: 10/21/23 00:15 Date of Discharge: 10/21/23 Admitting Physician: ALICIA KRISHNAN MD Consults: Consults on Case 10/21/23 02:06 Case Management [facility] Needs Assessment ROUTINE Primary Care Provider: CELSO ELLISON Allergies Allergies No Known Drug Allergies Allergy (Verified 10/20/23 21:41) Hospital Summary - Hospital Course Hospital Course: 43-year-old woman with a history of CAD with SC 34 years of age, COPD/asthma with monthly inhaler use but no admissions for respiratory failure, peripheral arterial disease with recurrent leg arterial thrombi on chronic Xarelto, who presents with chest tightness and dyspnea. Patient was in her usual state of health until this afternoon when she suddenly began to feel tightness over her chest and back, associated with severe dyspnea and left shoulder blade pain, dizziness and lightheadedness. He denied any nausea, cough, fevers, chills, or sore throat. This was not similar to how she felt with her prior SC 9 years ago. No sick contacts, although she has been having more allergic rhinitis symptoms. She last had a "asthma attack" 2 weeks ago for which she used her inhaler. This time, she had no relief by inhaler. No exacerbating or alleviating factors. However, after coming to the ER and getting steroids and nebs, she is feeling her breathing is much better. However, when they tried to ambulate her on room air, her SpO2 dropped to 88%. She is currently on 2 L oxygen by nasal cannula. She has a [id number] smoking history. Dyspnea and cough has improved. Radiologist called ED with noted infiltrate on cxr. Patient was started on ceftriaxone/azithromycin in ED. Patient however is requesting discharge today as she is feeling much better and has family at home she needs to care for. She qualifies for 2L continuous oxygen which we have set up for her. She has a nebulizer machine, duonebs, trelegy/albuterol inhalers which she will continue. She will discharge on cefpodoxime/azithromycin as well as a prednisone burst. Patient to follow up in one week with PCP for treatment response/repeat CXR. Patient agreeable to plan and stable for discharge. Discharge Note New Diagnosis: Pneumonia/copd exacerbation New Medications: cefodoxime/ prednisone Follow Up: pcp Latest Assessment & Plan (1) COPD with exacerbation Current Visit: Yes Status: Acute Assessment & Plan: 43-year-old with a history of CAD, COPD versus asthma, hypertension, and PAD, who presents with shortness of breath and chest tightness. ## Asthma versus COPD with acute exacerbation no access to her pulmonary function testing, but given her strong smoking history, COPD is a family more likely than asthma. However, she has not had significant problems requiring hospitalization in the past for this. Acute trigger is most likely her recent allergic rhinitis symptoms. No evidence of pneumonia on chest x-ray. As well, she has no increase in sputum purulence or quantity to indicate need for antibiotics for COPD exacerbation. In the ED she was given Rocephin and azithromycin. Already on exam, she has no wheezing or prolonged expiration, no work of breathing. However, she was hypoxic on ambulation in the ED. Continue 2 L oxygen, and wean to maintain SpO2 between 91 to 95%. Continue Solu-Medrol, decrease to 40 mg IV BID Albuterol q.4 hours PRN Discontinue antibiotics After some more time for the steroids to take effect, we will repeat attempt to ambulate patient on room air to see if she would be able to go home ## CAD her presenting symptoms are concerning for ACS. However, serial t roponins are negative and EKG has no changes. Her history of SC at a very early age is concerning, but her quick recovery with bronchodilators suggest more respiratory cause. Follow on telemetry Complete trending troponin Continue on aspirin, atorvastatin Will investigate why patient is not on beta-desean, although possibly because of her asthma/COPD ## Peripheral arterial disease per patient, has had recurrent leg thrombi and is on lifelong anticoagulation, her last surgery for this was a few years ago. Continue low-dose Xarelto 10 mg QHS ## Hypertension per history, but not currently on medications other than Lasix for her heart failure. Blood pressure currently controlled. Continue monitoring blood pressure ## Reported history of heart failure no history of echocardiograms, and patient is not on GDMT, suspecting diastolic heart failure or ischemia related to her prior SC. Patient is currently euvolemic, with low BNP. Continue home Lasix 20 mg, as well as potassium replacement ### pneumonia - Per radiologist CXR with noted infiltrate, patient requesting discharge, dyspnea has improved, she does qualify for 2L of continuous oxygen. Will send on cefpodoxime, prednisone. She will continue her home meds of nebs/bronchodilators I spent 35 minutes [id number] with the patient on the day of discharge performing discharge exam, discussing hospital stay and discharge instructions with patient and caregivers, preparation of discharge records, prescriptions & referral forms and addressing any questions/concerns the patient had as documented above. - Vitals & Intake/Output Vital Signs: Vital Signs Temperature 96.1 F 10/21/23 07:01 Pulse Rate 61 10/21/23 07:08 Respiratory Rate 16 10/21/23 07:08 Blood Pressure 117/61 10/21/23 07:01 O2 Sat by Pulse Oximetry 93 L 10/21/23 07:18 Intake & Output: Intake & Output 10/18/23 10/19/23 10/20/23 10/21/23 11:59 11:59 11:59 11:59 Intake Total 1020 Balance 1020 Weight 153.9 kg - Lab Result Diagrams: 10/21/23 04:44 10/21/23 04:44 Lab Results-Last 24 Hrs: Lab Results-Last 24 Hours 10/20/23 10/20/23 10/20/23 Range/Units 21:45 21:45 21:45 WBC 9.4 (4.0-10.5) x10^3/uL RBC 4.94 (4.1-5.4) x10^6/uL Hgb 14.2 (12.0-16.0) g/dL Hct 42.5 (35-47) % MCV 86.0 (78-100) fL MCH 28.7 (26-32) pg MCHC 33.4 (32-36) g/dL RDW 12.8 (11.5-14.0) % Plt Count 232 (150-450) x10^3/uL MPV 11.0 (7.5-11.0) fL Gran % 55.6 (36.0-66.0) % Immature Gran % (Auto) 0.2 (0.00-0.4) % Nucleat RBC Rel Count 0.0 (0.00-0.1) % Eos # (Auto) 0.24 (0-0.5) x10^3/uL Immature Gran # (Auto) 0.02 (0.00-0.03) x10^3u/L Absolute Lymphs (auto) 3.32 (1.0-4.6) x10^3/uL Absolute Monos (auto) 0.52 (0.0-1.3) x10^3/uL Absolute Nucleated RBC 0.00 (0.00-0.01) x10^3u/L Lymphocytes % 35.2 (24.0-44.0) % Monocytes % 5.5 (0.0-12.0) % Eosinophils % 2.5 (0.00-5.0) % Basophils % 1.0 (0.0-0.4) % Absolute Granulocytes 5.24 (1.4-6.9) x10^3/uL Basophils # 0.09 (0-0.4) x10^3/uL D-Dimer 0.34 (0.0-0.50) mg/L Sodium 139 (135-145) mmol/L Potassium 3.8 (3.5-5.1) mmol/L Chloride 107 (98-107) mmol/L Carbon Dioxide 25 (22-30) mmol/L Anion Gap 10.6 (5-15) MEQ/L BUN 9 (7-17) mg/dL Creatinine 0.68 (0.52-1.04) mg/dL Estimated GFR 109.4 ML/MIN Glucose 95 (74-106) mg/dL Lactic Acid (0.4-2.0) Calcium 9.0 (8.4-10.2) mg/dL Magnesium 2.0 (1.6-2.3) mg/dL Total Bilirubin 0.20 (0.2-1.3) mg/dL AST 22 (14-36) U/L ALT 25 (0-35) U/L Alkaline Phosphatase 92 (38-126) U/L Troponin I (0.000-0.033) ng/mL NT-Pro-B Natriuret Pep (<300) pg/mL Serum Total Protein 6.9 (6.3-8.2) g/dL Albumin 4.1 (3.5-5.0) g/dL 10/20/23 10/20/23 10/20/23 Range/Units 21:45 21:45 22:11 WBC (4.0-10.5) x10^3/uL RBC (4.1-5.4) x10^6/uL Hgb (12.0-16.0) g/dL Hct (35-47) % MCV (78-100) fL MCH (26-32) pg MCHC (32-36) g/dL RDW (11.5-14.0) % Plt Count (150-450) x10^3/uL MPV (7.5-11.0) fL Gran % (36.0-66.0) % Immature Gran % (Auto) (0.00-0.4) % Nucleat RBC Rel Count (0.00-0.1) % Eos # (Auto) (0-0.5) x10^3/uL Immature Gran # (Auto) (0.00-0.03) x10^3u/L Absolute Lymphs (auto) (1.0-4.6) x10^3/uL Absolute Monos (auto) (0.0-1.3) x10^3/uL Absolute Nucleated RBC (0.00-0.01) x10^3u/L Lymphocytes % (24.0-44.0) % Monocytes % (0.0-12.0) % Eosinophils % (0.00-5.0) % Basophils % (0.0-0.4) % Absolute Granulocytes (1.4-6.9) x10^3/uL Basophils # (0-0.4) x10^3/uL D-Dimer (0.0-0.50) mg/L Sodium (135-145) mmol/L Potassium (3.5-5.1) mmol/L Chloride (98-107) mmol/L Carbon Dioxide (22-30) mmol/L Anion Gap (5-15) MEQ/L BUN (7-17) mg/dL Creatinine (0.52-1.04) mg/dL Estimated GFR ML/MIN Glucose (74-106) mg/dL Lactic Acid 1.3 (0.4-2.0) Calcium (8.4-10.2) mg/dL Magnesium (1.6-2.3) mg/dL Total Bilirubin (0.2-1.3) mg/dL AST (14-36) U/L ALT (0-35) U/L Alkaline Phosphatase (38-126) U/L Troponin I < 0.012 (0.000-0.033) ng/mL NT-Pro-B Natriuret Pep 118 (<300) pg/mL Serum Total Protein (6.3-8.2) g/dL Albumin (3.5-5.0) g/dL 10/21/23 10/21/23 10/21/23 Range/Units 02:01 04:44 04:44 WBC 9.4 (4.0-10.5) x10^3/uL RBC 5.07 (4.1-5.4) x10^6/uL Hgb 14.5 (12.0-16.0) g/dL Hct 43.7 (35-47) % MCV 86.2 (78-100) fL MCH 28.6 (26-32) pg MCHC 33.2 (32-36) g/dL RDW 12.9 (11.5-14.0) % Plt Count 220 (150-450) x10^3/uL MPV 10.5 (7.5-11.0) fL Gran % (36.0-66.0) % Immature Gran % (Auto) (0.00-0.4) % Nucleat RBC Rel Count (0.00-0.1) % Eos # (Auto) (0-0.5) x10^3/uL Immature Gran # (Auto) (0.00-0.03) x10^3u/L Absolute Lymphs (auto) (1.0-4.6) x10^3/uL Absolute Monos (auto) (0.0-1.3) x10^3/uL Absolute Nucleated RBC (0.00-0.01) x10^3u/L Lymphocytes % (24.0-44.0) % Monocytes % (0.0-12.0) % Eosinophils % (0.00-5.0) % Basophils % (0.0-0.4) % Absolute Granulocytes (1.4-6.9) x10^3/uL Basophils # (0-0.4) x10^3/uL D-Dimer (0.0-0.50) mg/L Sodium 138 (135-145) mmol/L Potassium 3.9 (3.5-5.1) mmol/L Chloride 109 H (98-107) mmol/L Carbon Dioxide 20 L (22-30) mmol/L Anion Gap 13.0 (5-15) MEQ/L BUN 11 (7-17) mg/dL Creatinine 0.69 (0.52-1.04) mg/dL Estimated GFR 109.0 ML/MIN Glucose 223 H (74-106) mg/dL Lactic Acid (0.4-2.0) Calcium 8.9 (8.4-10.2) mg/dL Magnesium (1.6-2.3) mg/dL Total Bilirubin (0.2-1.3) mg/dL AST (14-36) U/L ALT (0-35) U/L Alkaline Phosphatase (38-126) U/L Troponin I < 0.012 (0.000-0.033) ng/mL NT-Pro-B Natriuret Pep (<300) pg/mL Serum Total Protein (6.3-8.2) g/dL Albumin (3.5-5.0) g/dL 10/21/23 Range/Units 06:48 WBC (4.0-10.5) x10^3/uL RBC (4.1-5.4) x10^6/uL Hgb (12.0-16.0) g/dL Hct (35-47) % MCV (78-100) fL MCH (26-32) pg MCHC (32-36) g/dL RDW (11.5-14.0) % Plt Count (150-450) x10^3/uL MPV (7.5-11.0) fL Gran % (36.0-66.0) % Immature Gran % (Auto) (0.00-0.4) % Nucleat RBC Rel Count (0.00-0.1) % Eos # (Auto) (0-0.5) x10^3/uL Immature Gran # (Auto) (0.00-0.03) x10^3u/L Absolute Lymphs (auto) (1.0-4.6) x10^3/uL Absolute Monos (auto) (0.0-1.3) x10^3/uL Absolute Nucleated RBC (0.00-0.01) x10^3u/L Lymphocytes % (24.0-44.0) % Monocytes % (0.0-12.0) % Eosinophils % (0.00-5.0) % Basophils % (0.0-0.4) % Absolute Granulocytes (1.4-6.9) x10^3/uL Basophils # (0-0.4) x10^3/uL D-Dimer (0.0-0.50) mg/L Sodium (135-145) mmol/L Potassium (3.5-5.1) mmol/L Chloride (98-107) mmol/L Carbon Dioxide (22-30) mmol/L Anion Gap (5-15) MEQ/L BUN (7-17) mg/dL Creatinine (0.52-1.04) mg/dL Estimated GFR ML/MIN Glucose (74-106) mg/dL Lactic Acid (0.4-2.0) Calcium (8.4-10.2) mg/dL Magnesium (1.6-2.3) mg/dL Total Bilirubin (0.2-1.3) mg/dL AST (14-36) U/L ALT (0-35) U/L Alkaline Phosphatase (38-126) U/L Troponin I < 0.012 (0.000-0.033) ng/mL NT-Pro-B Natriuret Pep (<300) pg/mL Serum Total Protein (6.3-8.2) g/dL Albumin (3.5-5.0) g/dL - Radiology Exams Ordered Rad Exams-Entire Visit: Radiology Procedures Category Date Time Status CHEST 1 VIEW (PORTABLE) Stat Exams 10/20/23 22:11 Completed - Procedures and Test Procedures and Tests throughout Hospitalization: Therapy Orders & Screens 10/20/23 21:47 Respiratory Therapy Assessment DAILY Comment: 10/21/23 00:23 Oxygen Nasal Cannula 2 lpm Comment: Respiratory Therapy Consult ONCE Comment: Reason For Exam: 10/21/23 02:06 RT Screen per Nursing Assess ONCE Comment: Protocol Order Physician Instructions: Greater than 3 points order RT Admission Screen Reason For Exam: Triggered on Admission Diagnosis: COPD Exacerbation Diagnosis: COPD Exacerbation Pneumonia: No Home O2: No Asthma: Yes CHF: No Home CPAP/BIPAP: No Home Nebs/MDI: Yes Total Points: 9 Smoking Cessation Education ONCE Comment: Diagnosis: COPD Exacerbation Smoking Status: Current every day smoker How long have you smoked: 2000 Approximately how many cigarettes per day: pt states not quite a pack/day Do you dip or chew tobacco: No 10/21/23 02:36 Respiratory MDI BID Comment: Diagnosis: COPD Exacerbation 10/21/23 02:43 Respiratory Therapy Consult ONCE Comment: Reason For Exam: Diagnosis: COPD Exacerbation Discharge Exam General Appearance: no apparent distress Neurologic Exam: alert, oriented x 3, cooperative Eye Exam: PERRL Ears, Nose, Throat Exam: normal ENT inspection Neck Exam: normal inspection Respiratory Exam: crackles/rales, wheezing Cardiovascular Exam: regular rate/rhythm, normal heart sounds Gastrointestinal/Abdomen Exam: soft, normal bowel sounds Pelvic Exam: deferred Rectal Exam: deferred Back Exam: normal inspection Extremity Exam: normal inspection Skin Exam: normal color Final Diagnosis/Problem List - Final Discharge Diagnosis/Problem (1) Pneumonia Current Visit: Yes Status: Acute Code(s): J18.9 - PNEUMONIA, UNSPECIFIED ORGANISM (2) PAD (peripheral artery disease) Current Visit: Yes Status: Chronic Code(s): I73.9 - PERIPHERAL VASCULAR DISEASE, UNSPECIFIED (3) HTN (hypertension) Current Visit: Yes Status: Chronic Code(s): I10 - ESSENTIAL (PRIMARY) HYPERTENSION (4) CHF (congestive heart failure) Current Visit: Yes Status: Chronic Code(s): I50.9 - HEART FAILURE, UNSPECIFIED (5) COPD with exacerbation Current Visit: Yes Status: Acute Code(s): J44.1 - CHRONIC OBSTRUCTIVE PULMONARY DISEASE W (ACUTE) EXACERBATION - Discharge Disposition: Home, Self-Care Condition: Stable Prescriptions: New Prednisone 20 mg [Deltasone 20 mg] 20 mg PO BID 5 Days #10 tablet Cefpodoxime Proxetil 200 mg [Vantin 200 mg] 200 mg PO BID 7 Days #14 tablet Azithromycin 250 mg [Zithromax 250 MG TABLET] 250 mg PO DAILY 3 Days #3 tablet Continue Furosemide 40 mg [Lasix 40 MG] 20 mg PO DAILY Potassium Chloride 10 meq PO DAILY Escitalopram Oxalate [Lexapro] 20 mg PO HS Aspirin EC 81 mg [Ecotrin 81 mg] 1 tab PO DAILY Albuterol Sulfate [Proair Respiclick] 2 puffs IH Q4-6HPRN PRN PRN Reason: Shortness Of Breath/Wheezing Fluticasone/Umeclidin/Vilanter [Trelegy Ellipta 100-62.5-25] 1 each IH UD Atorvastatin Calcium [Lipitor 20MG Tablet] 20 mg PO HS Rivaroxaban 10 mg Tablet [Xarelto 10 mg Tablet] 10 mg PO HS Albuterol 2.5 mg/3 ml Neb [Proventil 2.5 mg/3 ml Neb] 2.5 mg IH UD PRN PRN Reason: Shortness Of Breath/Wheezing Omeprazole 20 mg PO HS Instructions: Exacerbation of COPD (DC) Follow up with: CELSO ELLISON NP [Primary Care Provider] - 10/28/23 8:40 am Forms: Discharge Instructions
[2023-10-21 12:09] VITALS: BP 108/56; PULSE 74; RESP 20; TEMP 97.3; O2SAT 95
[2023-10-21] MEDS ORDERED: NON-FORMULARY ITEM (Omeprazole [Omeprazole] 20 MG Capsule.Dr) PO SCH (22:00)
[2023-10-21] MEDS ORDERED: Lexapro PO SCH (22:00)
[2023-10-21] MEDS ORDERED: NON-FORMULARY ITEM (Atorvastatin Calcium 20 MG Tab) PO SCH (22:00)
[2023-10-21] MEDS ORDERED: ZOCOR 20MG PO SCH (22:00)
[2023-10-21] MEDS ORDERED: Protonix 40MG Tablet PO SCH (22:00)
[2023-10-21] MEDS ORDERED: ROCEPHIN 1 GM / 100 ML NaCl 1 GM/100 ML IVPB IV SCH (22:00)
[2023-10-21] MEDS ORDERED: Zithromax 500 MG/ 250 ML NaCl Premix 500 MG/250 ML IVPB IV SCH (22:00)
== END 2023-10-21 12:29 | disposition home or self-care (01) ==
LOC: ED 21:37 → MED SURG 10-21 00:15
PROVIDERS: ADMIT Internal Medicine; ATTEND Internal Medicine
DX: J18.9 Pneumonia, unspecified organism (principal); I73.9 Peripheral vascular disease, unspecified; I11.0 Hypertensive heart disease with heart failure; I50.9 Heart failure, unspecified; J44.1 Chronic obstructive pulmonary disease with (acute) exacerbation; J45.909 Unspecified asthma, uncomplicated; I25.10 Atherosclerotic heart disease of native coronary artery without angina pectoris; I25.2 Old myocardial infarction; E78.5 Hyperlipidemia, unspecified; F17.200 Nicotine dependence, unspecified, uncomplicated; Z79.899 Other long term (current) drug therapy; Z79.01 Long term (current) use of anticoagulants
CPT/HCPCS: 36000; 36415; 71045; 80048; 80053; 83605; 83735; 83880; 84484; 85025; 85027; 85379; 87040; 93005; 93041; 93268; 94640; 94762; 96374; 99285; G0378; Q3014; 94760; J0456; J0696; J2919; A9270-GY